=== PATIENT | female | born 1995 | race Caucasian/White ===

== ENCOUNTER 2019-10-05 04:25 | Emergency (ER) | payer SELFPAY ==
[~2019-10-05] VITALS: Ht 287 cm; Wt 63.5 kg
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
--- NOTE | 2019-10-05 04:55 | NUR ---
PT TAKEN TO CT
--- NOTE | 2019-10-05 05:04 | NUR ---
PT BACK FROM CT
[2019-10-05] MEDS ORDERED: HYDROCODONE/APAP 10/325MG 1 EA TABLET ONE (05:48)
[2019-10-05] MEDS ORDERED: HYDROCODONE/APAP 10/325MG 1 EA TABLET PO ONE (06:00)
--- NOTE | 2019-10-05 06:21 | NUR ---
ATTEMPTED TO WAKE PT UP, PT UNABLE TO SIT UP, WENT BACK TO SLEEP
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
--- NOTE | 2019-10-05 08:08 | NUR ---
PT STATED HER AUNTIE IS IN THE HOUSE THAT CAN HELP HER. AWARE.
--- NOTE | 2019-10-05 08:09 | NUR ---
Patient discharged to home in stable condition. Written and verbal after care instructions given. Patient verbalizes understanding of instruction.
[2019-10-05 08:10] VITALS: BP 128/76
== END 2019-10-05 08:11 | disposition home or self-care (01) ==
LOC: ER 04:25
DX: S32.491A Other specified fracture of right acetabulum, initial encounter for closed fracture (principal); R10.31 Right lower quadrant pain; V49.59XA Passenger injured in collision with other motor vehicles in traffic accident, initial encounter; Y93.89 Activity, other specified; Y92.413 State road as the place of occurrence of the external cause; Y99.8 Other external cause status

== ENCOUNTER 2020-02-21 22:35 | Emergency (ER) | payer SELFPAY ==
[~2020-02-21] VITALS: Ht 157.5 cm; Wt 77.1 kg
[2020-02-21 22:43] VITALS: BP 131/85
== END 2020-02-22 00:46 | disposition home or self-care (01) ==
LOC: ER 22:35
DX: S09.8XXA Other specified injuries of head, initial encounter (principal); W18.39XA Other fall on same level, initial encounter; Y93.89 Activity, other specified; Y92.89 Other specified places as the place of occurrence of the external cause; Y99.8 Other external cause status